=== PATIENT | female | born 1940 | race Caucasian/White ===

== ENCOUNTER 2016-11-18 13:52 | Day surgery (SDC) | payer OTHER ==
[~2016-11-18 13:52] MED LIST: ATV.5 PO; BEN25 PO; CAT1 PO; CLARIT10 PO; COZ50 PO; EVISTA60 PO; GINKGO BILOB30 M1 PO; HYGROTON 25 MG25 MG PO; KDUR10 PO; KLONO2 PO; L20 PO; LORTAB 5 PO; LORTAB10 PO; MICRO-K10 MEQ PO; MULTIVITAMI1 PO; NEXIUM40 PO; NORCO1 TA1 PO; NORCO1 TA2 PO; NORV10 PO; NORV5 PO; OTC EAR DROPS OT; PRIN10 PO; PRIN20 PO; PROZAC PO; RELA5 PO; SARAFEM20 M1 PO; TRAZ100 PO; TUMSROLL PO; VICODINTAB PO; X5 PO; ZANTAC 150 PO; ZANTAC150 MG PO; ZOCOR10 PO; ZOFRAN8 PO; ZOL100 PO
[2016-11-22] MEDS ORDERED: EXELON9.5T TOP (18:46)
[2017-06-23] MEDS ORDERED: [UNRECOGNIZED DRUG - OTHER] OT (15:25)
[2017-06-23] MEDS ORDERED: LIPOFLAVONOID PO (15:25)
[2017-06-23] MEDS ORDERED: NORV10 PO (15:26)
[2017-06-23] MEDS ORDERED: BION TEARS OPH (15:26)
[2017-06-23] MEDS ORDERED: ZANTAC 150 PO (15:26)
[2017-06-23] MEDS ORDERED: ZOL100 PO (15:26)
[2017-06-23] MEDS ORDERED: ZOCOR10 PO (15:27)
[2017-06-23] MEDS ORDERED: ATV.5 PO (15:27)
[2017-06-23] MEDS ORDERED: BACDS PO (15:27)
[2017-06-23] MEDS ORDERED: CAT2 PO (15:27)
[2017-06-23] MEDS ORDERED: ZOFRAN8 PO (15:27)
[2017-06-23] MEDS ORDERED: NORCO1 TA2 PO (15:28)
[2017-06-23] MEDS ORDERED: EXELON9.5T TOP (15:28)
[2017-06-23] MEDS ORDERED: CLARIT10 PO (15:29)
[2017-06-27] MEDS ORDERED: COREG12 PO (15:04)
[2017-06-27] MEDS ORDERED: LEVAQUIN750 MG PO (15:05)
[2017-06-27] MEDS ORDERED: MIRALAX POWDER1 PKT PO (15:15)
== END 2016-11-18 23:59 | disposition home or self-care (01) ==
LOC: SDC 13:52
DX: N26.1 Atrophy of kidney (terminal) (principal); N13.30 Unspecified hydronephrosis; I10 Essential (primary) hypertension; K21.9 Gastro-esophageal reflux disease without esophagitis; F41.9 Anxiety disorder, unspecified; F32.9 Major depressive disorder, single episode, unspecified; E78.5 Hyperlipidemia, unspecified; Z88.0 Allergy status to penicillin; Z88.8 Allergy status to other drugs, medicaments and biological substances
CPT/HCPCS: 50432; C1729; C1769; C1894; J0330; J1170; J1956; J2175; J2250; J2405; J3010; Q9967